=== PATIENT | female | born 1970 | race African-American/Black ===

== ENCOUNTER 2019-03-19 07:52 | Inpatient (IN) | payer MEDICAID, OTHER ==
[~2019-03-19] VITALS: Ht 165.1 cm; Wt 70.8 kg
[2019-03-19] VITALS (29 sets, daily range): BP systolic 112–140; BP diastolic 46–107
[2019-03-19] MEDS ORDERED: SODIUM CHLORIDE 0.9% 1,000 ML IV ONE ×3 (08:13→08:34)
[2019-03-19 08:33] LABS: BG CARBOXYHEMOGLOBIN 0.8 % (0.5-1.5); BG DEOXYHEMOGLOBIN 2.2 % (0.0-5.0); BG METHEMOGLOBIN 0.4 % (0.0-1.5); BG OXYGEN SATURATION 97.8 % (92.0-98.5); BG OXYHEMOGLOBIN 96.6 % (94.0-97.0); BG PCO2 < 8.9 mmHg (35.0-45.0); BG PH 6.968 (7.350-7.450); BG SAMPLE SITE RIGHT RADIAL; BG TOTAL HEMOGLOBIN 15.2 g/dL (12.0-18.0); BG VENT MODE ROOM AIR
[2019-03-19 08:41] LABS: BASOPHILS % 0.6 % (0.0-2.0); EOSINOPHILS % 0.1 % (0.0-5.0); HEMATOCRIT. 49.9 % (36.0-48.0); HEMOGLOBIN. 14.3 g/dL (12.0-16.0); LYMPHOCYTES % 7.4 % (20.0-50.0); MEAN CORPUSCULAR HEMOGLOBIN 27.5 pg (28.0-32.0); MEAN CORPUSCULAR VOLUME 95.9 fL (81.0-99.0); MEAN PLATELET VOLUME 10.6 fl (7.4-10.4); MONOCYTES % 3.1 % (2.0-8.0); NEUTROPHILS % 88.8 % (40.0-76.0); PLATELET 461 x1000/uL (130-400); RED CELL DISTRIBUTION WIDTH 23.1 % (11.6-14.6)
[2019-03-19] MEDS ORDERED: SODIUM BICARBONATE 8.4% 1 MEQ/ML 50ML SYR IV ONE (08:45)
[2019-03-19] MEDS ORDERED: INSULIN REGULAR (DRIP) 100 UNITS in SODIUM CHLORIDE 0.9% 100 ML IV ONE ×2 (08:45→09:15)
[2019-03-19 08:48] LABS: CHLORIDE 103 mEq/L (98-107)
[2019-03-19 08:53] LABS: ETHANOL BLOOD < 10 mg/dL
[2019-03-19 08:59] LABS: BETA HYDROXYBUTYRATE 7.3 mMol/L (0.0-0.3); HCG SCREEN NEGATIVE
[2019-03-19 09:29] LABS: PLATELET ESTIMATE INCREASED
[2019-03-19 10:11] LABS: CLARITY URINE CLEAR (CLEAR); COLOR URINE YELLOW (YELLOW); KETONES URINE 4+ (NEGATIVE); LEUKOCYTE ESTERASE URINE NEGATIVE (NEGATIVE); NITRITE URINE NEGATIVE (NEGATIVE); OCCULT BLOOD URINE 3+ (NEGATIVE); PROTEIN URINE 2+ (NEGATIVE); SPECIFIC GRAVITY URINE 1.025 (1.005-1.030); UROBILINOGEN URINE 0.2 E.U./dL (0.2-1.0)
[2019-03-19 10:29] LABS: *AMPHETAMINES SCREEN URINE NEGATIVE (NEGATIVE); *BARBITURATES SCREEN URINE NEGATIVE (NEGATIVE)
[2019-03-19 10:30] LABS: *BENZODIAZEPINES SCREEN URINE NEGATIVE (NEGATIVE); *COCAINE SCREEN URINE NEGATIVE (NEGATIVE); CANNABINOID URINE SCREEN NEGATIVE (NEGATIVE); METHADONE URINE SCREEN NEGATIVE (NEGATIVE); OPIATES URINE SCREEN NEGATIVE (NEGATIVE); PHENCYCLIDINE URINE SCREEN NEGATIVE (NEGATIVE)
[2019-03-19] MEDS ORDERED: CEFTRIAXONE 2 G PREMIX 50 ML IV ONE (11:00)
[2019-03-19] MEDS ORDERED: SODIUM CHLORIDE 0.9% 1000ML BAG (SEPSIS BOLUS) IV ONE (11:45)
[2019-03-19] MEDS ORDERED: METF-414 PO (15:07)
[2019-03-19] MEDS ORDERED: FERR236T3 PO (15:07)
[2019-03-19] MEDS ORDERED: MAGNESIUM/ALUMINUM HYDROXIDE/SIMETHICONE 30ML UDC PO PRN (15:30)
[2019-03-19] MEDS ORDERED: CLONIDINE 0.1MG TABLET PO PRN (15:30)
[2019-03-19] MEDS ORDERED: DEXTROSE 50% WATER 50ML SYRINGE IV PRN ×4 (15:30→18:15)
[2019-03-19] MEDS ORDERED: ACETAMINOPHEN 325MG TABLET PO PRN (15:30)
[2019-03-19] MEDS ORDERED: HYDROCODONE/ACETAMINOPHEN 5/325MG TABLET PO PRN (15:30)
[2019-03-19] MEDS ORDERED: DEXT 5%/0.45% NACL 1000ML 1,000 ML IV SCH (16:00)
[2019-03-19] MEDS ORDERED: BLOOD SUGAR DIAGNOSTIC STRIP TEST SCH (16:30)
[2019-03-19] MEDS ORDERED: INSULIN LISPRO 100 UNITS/ML SUBCUT SCH (17:00)
[2019-03-19] MEDS ORDERED: DEXT 5%/0.45% NACL KCL 20MEQ/L 1,000 ML IV SCH (17:00)
[2019-03-19] MEDS: DEXT 5%/0.45% NACL KCL 20MEQ/L 1,000 ML IV SCH (17:24)
[2019-03-19] MEDS ORDERED: INSULIN REGULAR (DRIP) 100 UNITS in SODIUM CHLORIDE 0.9% 99 ML IV PRN (18:00)
[2019-03-19] MEDS: ENOXAPARIN 40MG/0.4ML SYR SUBCUT SCH (18:06)
[2019-03-19] MEDS: BLOOD SUGAR DIAGNOSTIC STRIP TEST SCH ×5 (19:22→22:59)
[2019-03-19 19:50] LABS: CHLORIDE 117 mEq/L (98-107)
[2019-03-19 19:55] LABS: PHOSPHORUS 1.2 mg/dL (2.5-4.9)
[2019-03-19] MEDS: INSULIN REGULAR (DRIP) 100 UNITS in SODIUM CHLORIDE 0.9% 99 ML IV SCH (21:25)
[2019-03-19] MEDS ORDERED: INSULIN GLARGINE UD 100 UNITS/ML SYR SUBCUT SCH (22:00)
[2019-03-20] VITALS (24 sets, daily range): BP systolic 105–130; BP diastolic 55–81
[2019-03-20] MEDS: BLOOD SUGAR DIAGNOSTIC STRIP TEST SCH ×11 (00:05→23:15)
[2019-03-20] MEDS: DEXT 5%/0.45% NACL KCL 20MEQ/L 1,000 ML IV SCH ×2 (00:13→06:58)
[2019-03-20 00:50] LABS: CHLORIDE 117 mEq/L (98-107)
[2019-03-20 01:03] LABS: PHOSPHORUS 0.7 mg/dL (2.5-4.9)
[2019-03-20] MEDS ORDERED: BLOOD SUGAR DIAGNOSTIC STRIP TEST SCH (02:00)
[2019-03-20 05:38] LABS: CHLORIDE 117 mEq/L (98-107)
[2019-03-20 05:59] LABS: BETA HYDROXYBUTYRATE 1.8 mMol/L (0.0-0.3)
[2019-03-20 06:45] LABS: PHOSPHORUS 0.8 mg/dL (2.5-4.9)
[2019-03-20] MEDS ORDERED: POTASSIUM CHLORIDE IV SCH ×2 (09:45→11:00)
[2019-03-20] MEDS ORDERED: WATER IV SCH ×3 (09:45→11:00)
[2019-03-20] MEDS ORDERED: DEXT 10% IV SCH ×2 (09:45→11:00)
[2019-03-20] MEDS ORDERED: POTASSIUM PHOS,M-BASIC-D-BASIC 15 MMOL in DEXT 5% WATER 245 ML IV SCH (10:00)
[2019-03-20] MEDS ORDERED: POTASSIUM PHOS M BASIC D BASIC IV SCH (10:30)
[2019-03-20] MEDS ORDERED: MAGNESIUM 1 G PREMIX 100 ML IV NR (10:30)
[2019-03-20] MEDS ORDERED: DEXT 5% IV SCH (10:30)
[2019-03-20] MEDS: NACL IV SCH (10:34)
[2019-03-20] MEDS: POTASSIUM CHLORIDE IV SCH (10:34)
[2019-03-20] MEDS: DEXT IV SCH (10:34)
[2019-03-20 12:27] LABS: BASOPHILS % 0.4 % (0.0-2.0); HEMATOCRIT. 34.9 % (36.0-48.0); HEMOGLOBIN. 11.4 g/dL (12.0-16.0); LYMPHOCYTES % 14.5 % (20.0-50.0); MEAN CORPUSCULAR HEMOGLOBIN 27.8 pg (28.0-32.0); MEAN CORPUSCULAR VOLUME 85.4 fL (81.0-99.0); MEAN PLATELET VOLUME 9.1 fl (7.4-10.4); MONOCYTES % 7.7 % (2.0-8.0); NEUTROPHILS % 76.4 % (40.0-76.0); PLATELET 294 x1000/uL (130-400); RED BLOOD CELL COUNT 4.09 mill/uL (4.2-5.4); RED CELL DISTRIBUTION WIDTH 21.2 % (11.6-14.6)
[2019-03-20 12:37] LABS: CHLORIDE 116 mEq/L (98-107)
[2019-03-20 12:45] LABS: BETA HYDROXYBUTYRATE 0.9 mMol/L (0.0-0.3)
[2019-03-20 12:50] LABS: PHOSPHORUS 0.9 mg/dL (2.5-4.9)
[2019-03-20] MEDS: ENOXAPARIN 40MG/0.4ML SYR SUBCUT SCH ×2 (16:00→18:00)
[2019-03-20 18:22] LABS: CHLORIDE 116 mEq/L (98-107)
[2019-03-20 18:29] LABS: PHOSPHORUS 1.3 mg/dL (2.5-4.9)
[2019-03-20 18:31] LABS: BETA HYDROXYBUTYRATE 1.8 mMol/L (0.0-0.3)
[2019-03-20] MEDS: INSULIN REGULAR (DRIP) 100 UNITS in SODIUM CHLORIDE 0.9% 99 ML IV SCH (23:16)
[2019-03-21] VITALS (23 sets, daily range): BP systolic 92–148; BP diastolic 52–89
[2019-03-21] MEDS: BLOOD SUGAR DIAGNOSTIC STRIP TEST SCH ×17 (00:12→21:04)
[2019-03-21] MEDS: NACL IV SCH (00:14)
[2019-03-21] MEDS: DEXT IV SCH (00:14)
[2019-03-21] MEDS: POTASSIUM CHLORIDE IV SCH (00:14)
[2019-03-21 01:19] LABS: CHLORIDE 118 mEq/L (98-107)
[2019-03-21] MEDS ORDERED: POTASSIUM CHLORIDE INJ 40 MEQ in DEXT 5% WATER 250 ML IV SCH (04:00)
[2019-03-21 06:04] LABS: BASOPHILS % 0.5 % (0.0-2.0); EOSINOPHILS % 1.4 % (0.0-5.0); HEMATOCRIT. 33.9 % (36.0-48.0); HEMOGLOBIN. 11.1 g/dL (12.0-16.0); LYMPHOCYTES % 29.3 % (20.0-50.0); MEAN CORPUSCULAR HEMOGLOBIN 27.9 pg (28.0-32.0); MEAN CORPUSCULAR VOLUME 85.3 fL (81.0-99.0); MEAN PLATELET VOLUME 9.5 fl (7.4-10.4); MONOCYTES % 8.7 % (2.0-8.0); NEUTROPHILS % 60.1 % (40.0-76.0); PLATELET 307 x1000/uL (130-400); RED BLOOD CELL COUNT 3.98 mill/uL (4.2-5.4); RED CELL DISTRIBUTION WIDTH 21.5 % (11.6-14.6)
[2019-03-21 06:08] LABS: CHLORIDE 117 mEq/L (98-107)
[2019-03-21 06:21] LABS: BETA HYDROXYBUTYRATE 0.2 mMol/L (0.0-0.3)
[2019-03-21] MEDS ORDERED: SULFAMETHOXAZOLE/TRIMETHOPRIM 400/80MG TAB PO SCH (12:00)
[2019-03-21] MEDS ORDERED: DEXTROSE 50% WATER 50ML SYRINGE IV PRN (13:15)
[2019-03-21] MEDS ORDERED: POTASSIUM CHLORIDE INJ 40 MEQ in DEXT 5% WATER 250 ML IV NR (14:00)
[2019-03-21] MEDS ORDERED: FLUCONAZOLE 150MG TABLET PO NR (14:00)
[2019-03-21] MEDS: SODIUM CHL 0.45% + KCL 20MEQ/L 1,000 ML IV SCH (14:21)
[2019-03-21] MEDS ORDERED: INSULIN GLARGINE UD 100 UNITS/ML SYR SUBCUT NR (14:30)
[2019-03-21 16:16] LABS: PHOSPHORUS 1.2 mg/dL (2.5-4.9)
[2019-03-21] MEDS: INSULIN LISPRO 100 UNITS/ML SUBCUT SCH ×3 (16:43→21:04)
[2019-03-21] MEDS: ENOXAPARIN 40MG/0.4ML SYR SUBCUT SCH (16:44)
[2019-03-21] MEDS: INSULIN GLARGINE UD 100 UNITS/ML SYR SUBCUT SCH (21:05)
[2019-03-22] VITALS (15 sets, daily range): BP systolic 104–128; BP diastolic 51–81
[2019-03-22 05:11] LABS: BASOPHILS % 0.9 % (0.0-2.0); EOSINOPHILS % 2.7 % (0.0-5.0); HEMATOCRIT. 32.3 % (36.0-48.0); HEMOGLOBIN. 10.6 g/dL (12.0-16.0); LYMPHOCYTES % 37.4 % (20.0-50.0); MEAN CORPUSCULAR HEMOGLOBIN 27.9 pg (28.0-32.0); MEAN PLATELET VOLUME 9.5 fl (7.4-10.4); MONOCYTES % 10.9 % (2.0-8.0); NEUTROPHILS % 48.1 % (40.0-76.0); PLATELET 307 x1000/uL (130-400); RED BLOOD CELL COUNT 3.79 mill/uL (4.2-5.4); RED CELL DISTRIBUTION WIDTH 22.4 % (11.6-14.6)
[2019-03-22 05:11] LABS: CHLORIDE 116 mEq/L (98-107)
[2019-03-22 05:17] LABS: PHOSPHORUS 1.6 mg/dL (2.5-4.9)
[2019-03-22] MEDS: BLOOD SUGAR DIAGNOSTIC STRIP TEST SCH ×4 (06:38→21:54)
[2019-03-22] MEDS: INSULIN LISPRO 100 UNITS/ML SUBCUT SCH ×7 (06:38→21:54)
[2019-03-22] MEDS ORDERED: POTASSIUM CHLORIDE 20MEQ/PACKET PO NR (07:45)
[2019-03-22] MEDS ORDERED: POTASSIUM CHLORIDE INJ 40 MEQ in DEXT 5% WATER 250 ML IV NR (08:30)
[2019-03-22] MEDS: SODIUM CHL 0.45% + KCL 20MEQ/L 1,000 ML IV SCH (09:35)
[2019-03-22] MEDS ORDERED: POTASSIUM PHOS,M-BASIC-D-BASIC 30 MMOL in DEXT 5% WATER 500 ML IV NR (11:00)
[2019-03-22] MEDS ORDERED: POTASSIUM CHLORIDE 20MEQ TABLET SR PO NR (12:33)
[2019-03-22] MEDS: ENOXAPARIN 40MG/0.4ML SYR SUBCUT SCH (17:40)
[2019-03-22] MEDS: INSULIN GLARGINE UD 100 UNITS/ML SYR SUBCUT SCH (21:54)
[2019-03-23] VITALS: BP 105/63
[2019-03-23 04:00] VITALS: BP 96/56
[2019-03-23] MEDS: SODIUM CHL 0.45% + KCL 20MEQ/L 1,000 ML IV SCH (06:05)
[2019-03-23] MEDS: BLOOD SUGAR DIAGNOSTIC STRIP TEST SCH ×2 (07:03→12:48)
[2019-03-23] MEDS: INSULIN LISPRO 100 UNITS/ML SUBCUT SCH ×4 (07:20→13:35)
[2019-03-23 07:24] LABS: BASOPHILS % 0.8 % (0.0-2.0); EOSINOPHILS % 3.6 % (0.0-5.0); HEMATOCRIT. 31.8 % (36.0-48.0); HEMOGLOBIN. 10.6 g/dL (12.0-16.0); LYMPHOCYTES % 35.6 % (20.0-50.0); MEAN CORPUSCULAR HEMOGLOBIN 28.2 pg (28.0-32.0); MEAN CORPUSCULAR VOLUME 84.8 fL (81.0-99.0); MEAN PLATELET VOLUME 9.6 fl (7.4-10.4); MONOCYTES % 11.9 % (2.0-8.0); NEUTROPHILS % 48.1 % (40.0-76.0); PLATELET 320 x1000/uL (130-400); RED BLOOD CELL COUNT 3.75 mill/uL (4.2-5.4); RED CELL DISTRIBUTION WIDTH 22.3 % (11.6-14.6)
[2019-03-23 08:37] VITALS: BP 115/75
[2019-03-23 08:45] LABS: CHLORIDE 113 mEq/L (98-107)
[2019-03-23 11:58] VITALS: BP 113/72
[2019-03-23 16:00] VITALS: BP 115/70
[2019-03-23] MEDS: ENOXAPARIN 40MG/0.4ML SYR SUBCUT SCH (16:00)
[2019-03-23 16:24] VITALS: BP 115/70
== END 2019-03-23 17:36 | disposition home or self-care (01) | DRG 420 ==
LOC: ER 07:52 → MICUSO 08:53 → EDBEDREQ 09:08 → EDBEDREQTM 09:08 → ENRESERV 12:47 → 6WST 03-22 11:04
PROVIDERS: ADMIT Family Medicine Adult Medicine; ATTEND Family Medicine Adult Medicine
DX: E11.10 Type 2 diabetes mellitus with ketoacidosis without coma (principal); R65.10 Systemic inflammatory response syndrome (SIRS) of non-infectious origin without acute organ dysfunction; E83.39 Other disorders of phosphorus metabolism; E83.42 Hypomagnesemia; J45.909 Unspecified asthma, uncomplicated; N39.0 Urinary tract infection, site not specified; E87.6 Hypokalemia; Z79.84 Long term (current) use of oral hypoglycemic drugs; Z88.2 Allergy status to sulfonamides; Z91.040 Latex allergy status; Z83.3 Family history of diabetes mellitus
CPT/HCPCS: 36415; 36600; 71045; 80048; 80305; 80320; 81003; 82010; 82375; 82962; 83036; 83519; 83605; 83735; 83880; 84100; 84484; 84681; 84703; 87077; 93005; 93306; 93970; 99285; J0696; J1650; J1815; J3475; J3480; J3490; J7030; J7050; J7060; G0480